=== PATIENT | female | born 1935 | race Caucasian/White ===

== ENCOUNTER 2020-01-28 12:44 | Emergency (ER) | payer MEDICARE, SELFPAY ==
[~2020-01-28] VITALS: Ht 149.9 cm; Wt 61.2 kg
[2020-01-28 12:44] VITALS: BP_SYST 188
--- NOTE | 2020-01-28 12:44 | NUR ---
BROUGHT IN BY [facility], PLACED IN BED #1 AND TRIAGED. REPORT GIVEN TO ALBERTINA
[2020-01-28] MEDS ORDERED: DULO60CA65 PO (12:55)
[2020-01-28] MEDS ORDERED: IBUP800T54 PO (12:55)
[2020-01-28] MEDS ORDERED: LIP20 PO (12:55)
[2020-01-28] MEDS ORDERED: AMLO2.5T50 PO (12:55)
--- NOTE | 2020-01-28 12:55 | NUR ---
Medication reconciliation completed with information provided by patient. Any prior medication reconciliation on file was reviewed and corrected.
--- NOTE | 2020-01-28 13:09 | NUR ---
ER at bedside examining patient.
[2020-01-28 13:14] LABS: BASOPHILS # (AUTO) 0.1 K/uL (0.0-0.2); BASOPHILS % (AUTO) 0.9 % (0.0-2.0); EOSINOPHILS # (AUTO) 0.1 K/uL (0.0-0.4); EOSINOPHILS % (AUTO) 1.5 % (0.0-4.0); HEMATOCRIT 38.5 % (36-48); LYMPHOCYTES # (AUTO) 2.9 K/uL (1.0-5.5); LYMPHOCYTES % (AUTO) 30.5 % (20.5-51.5); MEAN CORPUSCULAR HEMOGLOBIN 32 pg (27-31); MEAN CORPUSCULAR HGB CONC 34 % (32-36); MEAN CORPUSCULAR VOLUME 94 fL (79.0-98.0); MONOCYTES # (AUTO) 0.7 K/uL (0.0-1.0); MONOCYTES % (AUTO) 7.6 % (1.7-9.3); NEUTROPHILS # (AUTO) 5.7 K/uL (1.8-7.7); NEUTROPHILS % (AUTO) 59.5 % (40.0-70.0); PLATELET COUNT (AUTO) 246 K/uL (130-430); RED CELL DISTRIBUTION WIDTH 12.9 % (9.0-15.0); WHITE BLOOD COUNT (AUTO) 9.6 K/uL (4.8-10.8)
[2020-01-28 13:32] LABS: ALANINE AMINOTRANSFERASE 14 U/L (12-78); ALBUMIN 3.5 g/dL (3.4-4.8); ANION GAP 8 (5-15); ASPARTATE AMINOTRANSFERASE 13 U/L (10-37); CHLORIDE 104 mmol/L (98-107); CREATININE 0.98 mg/dL (0.55-1.30); GLUCOSE 97 mg/dL (70-99); POTASSIUM 4.2 mmol/L (3.5-5.1); SODIUM SERUM 137 mmol/L (136-145); TOTAL BILIRUBIN 0.3 mg/dL (0.0-1.0); UREA NITROGEN, BLOOD 17 mg/dL (8-21)
--- NOTE | 2020-01-28 13:54 | NUR ---
Dr. Pitts, [facility], called back regarding pt status.
--- NOTE | 2020-01-28 14:42 | NUR ---
Patient resting comfortably at this time in no acute distress. Still noted to have bradycardic rate 40 bpm. Denies any cp or sob. Positioned for comfort and safety w/ bed to low position sr up, continue to monitor cardiac rate and rhythm.
--- NOTE | 2020-01-28 15:19 | NUR ---
TRANSFER INFO [facility] ACCEPTING: Dr. Neri REPORT #: [phone] ALS ETA [id number] spoke to Tianna Suarez
--- NOTE | 2020-01-28 15:37 | NUR ---
Report called and given to Deandra VILLAGRAN at [facility] [phone]
--- NOTE | 2020-01-28 16:26 | NUR ---
Patient to be transferred to [facility]. Is being transferred due to higher level of care. Receiving facility has accepting physician and available space. ER physician has signed transfer form. Patient or responsible green party has agreed to transfer and signed form. Patient belongings inventoried and will be sent with patient. Copy of nursing notes, lab reports, EKG, Physicians Orders and X-rays to be sent with patient. Report called to at receiving facility. Receiving physician is Dr. Mello. [facility] ambulance service has been called for transfer. ETA is now.
[2020-01-28 16:40] VITALS: BP_SYST 132
== END 2020-01-28 16:26 | disposition short-term general hospital (02) ==
LOC: SED 12:44
DX: R00.1 Bradycardia, unspecified (principal); I10 Essential (primary) hypertension; Z88.8 Allergy status to other drugs, medicaments and biological substances; Z79.899 Other long term (current) drug therapy; Z20.828 Contact with and (suspected) exposure to other viral communicable diseases
CPT/HCPCS: 36415; 71045; 80053; 82550-TC; 83735-TC; 83880; 84484; 85025; 93005; 99285